=== PATIENT | male | born 1980 | race Caucasian/White ===

== ENCOUNTER 2016-12-31 13:53 | Emergency (ER) | payer OTHER ==
[2016-12-31 14:01] VITALS: BP 143/66; PULSE 98; RESP 18; O2SAT 96
--- NOTE | 2016-12-31 14:05 | ED.REPORT ---
HPI-Allergic Reaction Date of Service Dec 31, 2016 ED Provider: History of Present Illness: 36-year-old male here with an allergic reaction. He was sent here from the urgent care. He had been on Bactrim for 2 weeks for recent sinusitis. Took his last pill yesterday. This morning he woke up with itchiness over his abdomen that gradually spread all over his body this morning. Had had some minor throat tightness and shortness of breath/wheezing. He felt dizzy. No nausea or vomiting. Went to the urgent care and was given 0.3 mg of epi, 50 Benadryl by mouth, 125 mg Solu-Medrol IVP, and 20 mg of famotidine by mouth. They then sent him here. His itchiness is now a 3 out of 10 and his shortness of breath and throat tightness is gone. Nursing Notes Stated Complaint: POSSIBLE ALLERGIC REACTION Chief Complaint: Allergic Reaction Allergies: Coded Allergies: Penicillins (Verified Allergy, Unknown, 12/31/16) Scheduled Epinephrine (Epipen 2-Aubrey) 0.3 Mg/0.3 Ml Auto.injct 0.3 MG IJ DAILY Prednisone (PredniSONE) 20 Mg Tablet 20 MG PO BID General Time Seen by MD: 14:04 Chief Complaint Allergic reaction, Rash throat tightness and lung symptoms gone. Hx Obtained From: Patient Arrived By: Walk-in Onset Occurred: 5 - 8 hours ago Context of Onset: New medication Symptom Duration: Since onset Progression Since Onset: Gradually improving Quality: Itching Severity: Current: No pain currently Recent Healthcare: Recent doctor visit Similar Sx Previous: No Past Medical History Past Medical History Notes: kidney failure as a child, resolved Review of Systems Review of Systems Note: itching improving, throat tightness and dyspnea gone Basic Review of Systems Cardiovascular: No chest pain : No dysuria Musculoskeletal: No extremity swelling, No extremity pain, Full range of motion Psychiatric: Normal thought content Constitutional: Denies: Fatigue, Fever Respiratory: Denies: Dyspnea on exertion, Non-productive cough GI: Denies: Abdominal pain, Nausea, Vomiting Skin: Reports Itching, Reports Rash Allergy / Immune: Reports: Allergic reaction, Hives, Itching Complete sys rev & neg: except as marked. Physical Exam Physical Exam Notes: generalized body rash, hive like Initial Vital Signs Vital Signs (First) Date Time Temp Pulse Resp B/P Pulse Ox O2 Delivery O2 Flow Rate FiO2 12/31/16 14:01 37.0 98 18 143/66 96 Room Air Initial VS: Reviewed, Vital signs normal Head / Eyes: Atraumatic, Normocephalic, PERRL ENT: Mucous membranes moist, Conjunctiva normal, No scleral icterus Neck: Supple, Non-tender, Full range of motion Abdomen / GI: Soft, Non-tender, No guarding, No rebound, No distention Lymphatic: No lymphadenopathy Neurologic: Alert, Oriented, Nonfocal Psychiatric: Mood/affect normal, Behavior normal, Normal thought content Color / Condition: Positive: Rash present Rash / Lesion Location: Positive: Generalized Rash / Lesion Pattern: Positive: Urticarial Re-Eval/Medical Decision Med Decision/Clinical Course 1535- pt doing well, no complaints. monitoring after epi IT has been approx [id number] since epi, will d/c home, with . discussed red flags and when to return. Discharge & Departure Shift Change Sign-Out Discussed Complaint(s): Yes Response to Therapy: Unchanged Primary Impression: Allergic reaction caused by a drug Disposition: Home Discharge Condition All VS Reviewed: Yes Condition: Stable Patient Instructions: Urticaria (ED) Additional Instructions: Do not take sulfa antibiotics anymore it appears you are allergic to them. Use EpiPen as needed for shortness of breath, wheezing, throat tightness and return to ER immediately if this occurs. Follow up with your doctor this week. Take steroid for rash twice a day. If intolerable you may take both doses at once. also take Benadryl when as needed 25-50 mg every 6 hours. EDSupervising Provider for APC: Levi Garcia Linnea K ARNP Dec 31, 2016 14:05
[2016-12-31 16:01] VITALS: BP 135/76; PULSE 102; RESP 16; O2SAT 96
[2016-12-31] MEDS ORDERED: PRE20 PO (16:56)
[2016-12-31] MEDS ORDERED: EPIN0.3P2 IJ (17:06)
[2016-12-31 17:08] VITALS: BP 135/76; PULSE 99; RESP 16; O2SAT 96
== END 2016-12-31 17:08 | disposition home or self-care (01) ==
LOC: SED 13:53 → EDBD 13:53 → SED 17:08
DX: T36.95XA Adverse effect of unspecified systemic antibiotic, initial encounter (principal); R21 Rash and other nonspecific skin eruption; X58.XXXA Exposure to other specified factors, initial encounter; Y93.89 Activity, other specified; Y92.9 Unspecified place or not applicable; Y99.8 Other external cause status; Z88.0 Allergy status to penicillin; Z88.2 Allergy status to sulfonamides